=== PATIENT | female | born 1975 | race Caucasian/White ===

== ENCOUNTER → 2017-10-21 | Outpatient (CLI) | payer OTHER ==
[~2017-10-21] MED LIST: ASPI81TA94 PO; ATOR20TA22 PO; CAR6.25 PO; CHOL500050 PO; ESCI20TA8 PO; FENO145T36 PO; INSU100I35 SQ; LIR18IPT SUBQ; LIS50 PO; LISI-355 PO; METXR500 PO; PREG75CA60 PO; VALA500T63 PO
[2017-10-21 15:21] LABS: PLATELET COUNT, AUTOMATED 242 K/uL (150-450)
[2017-10-21 15:30] LABS: LDL CHOLESTEROL 107 mg/dl
== END ==
LOC: LAB 15:00
PROVIDERS: ATTEND Emergency Medicine
DX: I10 Essential (primary) hypertension (principal); G62.9 Polyneuropathy, unspecified; E11.9 Type 2 diabetes mellitus without complications
CPT/HCPCS: 36415; 82040; 82247; 82310; 82374; 82435; 82465; 82565; 82607; 82947; 83036; 83718; 84075; 84132; 84155; 84295; 84443; 84450; 84460; 84478; 84520; 85025

== ENCOUNTER → 2017-12-16 | Outpatient (CLI) | payer OTHER ==
[~2017-12-16] MED LIST changes: +ATOR40TA69 PO; +EXEN2PEN SC; +INSU100I8 SC
== END ==
LOC: RESP 20:51
PROVIDERS: ATTEND Emergency Medicine
DX: G47.33 Obstructive sleep apnea (adult) (pediatric) (principal); G47.36 Sleep related hypoventilation in conditions classified elsewhere

== ENCOUNTER → 2018-01-07 | Outpatient (CLI) | payer OTHER ==
[~2018-01-07] MED LIST changes: +EMPA10TA PO; +FLU60SYR36 IM; +FLU60VIA41 IM; +PNEI IM
== END ==
LOC: LAB 10:55
PROVIDERS: ATTEND Emergency Medicine
DX: R53.83 Other fatigue (principal); E11.9 Type 2 diabetes mellitus without complications
CPT/HCPCS: 36415; 82728; 83036

== ENCOUNTER → 2018-04-11 | Outpatient (CLI) | payer OTHER ==
[~2018-04-11] MED LIST changes: +CEPH500T7 PO; +FLUV50TA18 PO
== END ==
LOC: LAB 08:47
PROVIDERS: ATTEND Emergency Medicine
DX: E11.9 Type 2 diabetes mellitus without complications (principal)
CPT/HCPCS: 36415; 83036

== ENCOUNTER → 2018-08-05 | Outpatient (CLI) | payer OTHER ==
--- NOTE | 2018-08-05 14:14 | RADIOLOGY IMAGING REPORT ---
[place] [facility] [place] NAME: MICHELLE EUGENE : [id number] MR: [id number] V: [id number] EXAM DATE: [id number] ORDERING PHYSICIAN: SVEN CERON TECHNOLOGIST: Tara Hernandez PROCEDURE: BILATERAL DIGITAL SCREENING MAMMOGRAM WITH CAD REASON FOR STUDY: Screening FAMILY HISTORY OF BREAST CANCER: None BREAST PROCEDURES/TREATMENTS: None COMPARISON: 04/01/17, 02/26/16, 02/18/16 VIEWS OBTAINED: Bilateral 2D & 3D full field CC & MLO & full field 2D Right XCC BREAST DENSITY: There are scattered areas of fibroglandular density throughout the breasts. MAMMOGRAM FINDINGS: There is a focal asymmetry in the lateral portion Right breast posterior depth on the Right CC view for which spot compression view is recommended. The remainder of the parenchymal pattern has remained stable. ASSESSMENT: BIRADS 0: Incomplete, need additional imaging evaluation. Additional views of the Right breast recommended as described. DIAGNOSTIC CATEGORY 0--INCOMPLETE: NEED ADDITIONAL IMAGING EVALUATION. RECOMMENDATIONS: ADDITIONAL MAMMOGRAPHIC VIEWS REQUIRED: RIGHT BREAST. Dictated by: Amy Waters M.D. on 08/05/2018 at 11:42 Transcribed by: IRAM on 08/05/2018 at 14:08 Approved by: Amy Waters M.D. on 08/05/2018 at 14:13 [facility]
== END ==
LOC: MAMO 00:23
PROVIDERS: ATTEND Emergency Medicine
DX: R92.8 Other abnormal and inconclusive findings on diagnostic imaging of breast (principal)
CPT/HCPCS: 77063; 77067

== ENCOUNTER → 2018-09-09 | Outpatient (CLI) | payer OTHER ==
--- NOTE | 2018-09-12 14:04 | RADIOLOGY IMAGING REPORT ---
FACILITY: [facility] PATIENT NAME: MICHELLE EUGENE : [id number] MR: [id number] V: [id number] EXAM DATE: ORDERING PHYSICIAN: SVEN CERON TECHNOLOGIST: Sherice Andrews PROCEDURE:RIGHT DIGITAL MAMMOGRAM DIAGNOSTIC WITH CAD ASSISTED INTERPRETATION & 3D TOMOSYNTHESIS REASON FOR STUDY: Further evaluation & Right breast Ultrasound. FAMILY HISTORY OF BREAST CANCER: None. BREAST PROCEDURES/TREATMENTS: None. COMPARISON STUDIES: 08/05/18, 04/01/17, 03/27/16, 02/18/16. MAMMOGRAM VIEWS OBTAINED: 2D & 3D Spot compression views in the Right CC projection. BREAST DENSITY: The breasts are heterogeneously dense which can obscure small masses. MAMMOGRAM FINDINGS: Focal asymmetry in the lateral portion of the Right breast appears partially compressible. This may have been present previously although this area was not entirely imaged on the prior Right CC views. ULTRASOUND AREA SCANNED: 9-12 o'clock. ULTRASOUND FINDINGS: There is no sonographic correlate identified to account for asymmetry in the lateral portion of the Right breast therefore a 6 month follow-up Right mammogram is recommended to document stability of the parenchymal pattern. DIAGNOSTIC CATEGORY 3--PROBABLY BENIGN FINDING. RECOMMENDATIONS: SIX MONTH FOLLOW-UP DIAGNOSTIC MAMMOGRAM: RIGHT BREAST. IMPRESSION: BIRADS 3: Probably benign finding. A 6 month follow-up diagnostic Right mammogram is recommended as described above. Dictated by: Amy Waters M.D. on 09/09/2018 at 14:43 Transcribed by: LEOBARDO on 09/12/2018 at 11:25 Approved by: Amy Waters M.D. on 09/12/2018 at 14:03 [facility]
--- NOTE | 2018-09-12 14:05 | RADIOLOGY IMAGING REPORT ---
FACILITY: [facility] - [place] PATIENT NAME: MICHELLE EUGENE : [id number] MR: [id number] V: [id number] EXAM DATE: ORDERING PHYSICIAN: SVEN CERON TECHNOLOGIST: Pedro Ludwig RDMS, RD PROCEDURE: RIGHT DIGITAL MAMMOGRAM DIAGNOSTIC WITH CAD ASSISTED INTERPRETATION & 3D TOMOSYNTHESIS REASON FOR STUDY: Further evaluation & Right breast Ultrasound. FAMILY HISTORY OF BREAST CANCER: None. BREAST PROCEDURES/TREATMENTS: None. COMPARISON STUDIES: 08/05/18, 04/01/17, 03/27/16, 02/18/16. MAMMOGRAM VIEWS OBTAINED: 2D & 3D Spot compression views in the Right CC projection. BREAST DENSITY: The breasts are heterogeneously dense which can obscure small masses. MAMMOGRAM FINDINGS: Focal asymmetry in the lateral portion of the Right breast appears partially compressible. This may have been present previously although this area was not entirely imaged on the prior Right CC views. ULTRASOUND AREA SCANNED: 9-12 o'clock. ULTRASOUND FINDINGS: DIAGNOSTIC CATEGORY 3--PROBABLY BENIGN FINDING. There is no sonographic correlate identified to account for asymmetry in the lateral portion of the Right breast therefore a 6 month follow-up Right mammogram is recommended to document stability of the parenchymal pattern. DIAGNOSTIC CATEGORY 3--PROBABLY BENIGN FINDING. RECOMMENDATIONS: SIX MONTH FOLLOW-UP DIAGNOSTIC MAMMOGRAM: RIGHT BREAST. IMPRESSION: BIRADS 3: Probably benign finding. A 6 month follow-up diagnostic Right mammogram is recommended as described above. Dictated by: Amy Waters M.D. on 09/09/2018 at 14:43 Transcribed by: LEOBARDO on 09/12/2018 at 11:25 Approved by: Amy Waters M.D. on 09/12/2018 at 14:04 [facility]
== END ==
LOC: MAMO 00:53
PROVIDERS: ATTEND Emergency Medicine
DX: R92.8 Other abnormal and inconclusive findings on diagnostic imaging of breast (principal)
CPT/HCPCS: 77061; 77065